=== PATIENT | female | born 1985 | race Caucasian/White ===

== ENCOUNTER 2016-09-21 18:17 | Emergency (ER) | payer OTHER ==
[2016-09-21 18:22] VITALS: BMI 39.1
--- NOTE | 2016-09-21 18:59 | PDOC ---
History of Present Illness - History of Present Illness Initial Comments: 09/21/16 19:29 The patient is a 31 year old female, with a significant past medical history of polycystic kidneys, kidney stones, and hypertension, who presents to the emergency department with right lower back pain since 10AM this morning. She reports the onset of pain was sudden while she was resting. She described the pain as constant, sharp, 4/10 in severity. She reports the pain is only slightly alleviated when sitting completely still. She states her LMP was about a month ago and states she can not be certain whether or not she is . The patient states she is nauseous but also reports feeling nauseous daily at baseline. She denies chest pain, shortness of breath, headache and dizziness. She denies fever, chills, vomit, diarrhea and constipation. She denies dysuria, frequency, urgency and hematuria. Allergies: NKDA Social history: PCP - Dr. Morales ([phone]) <Jenny Haynes - Last Filed: 09/21/16 20:57> <Tiffanie Petersen - Last Filed: 09/21/16 23:22> - General Chief Complaint: Pain Stated Complaint: KIDNEY PAIN Time Seen by Provider: 09/21/16 18:48 Past History <Jenny Haynes - Last Filed: 09/21/16 20:57> - Past Medical History Disorders: Yes (polycystic kidney disease) HTN: Yes Psychiatric Problems: Yes (anxiety/depression) - Psycho/Social/Smoking Cessation Hx Anxiety: No Suicidal Ideation: No Smoking History: Never smoked Have you smoked in the past 12 months: Yes Number of Cigarettes Smoked Daily: 7 Information on smoking cessation initiated: Yes 'Breaking Loose' booklet given: 09/21/16 Hx Alcohol Use: No Drug/Substance Use Hx: No Substance Use Type: None <Tiffanie Petersen - Last Filed: 09/21/16 23:22> - Past Medical History Allergies/Adverse Reactions: Allergies Allergy/AdvReac Type Severity Reaction Status Date / Time No Known Allergies Allergy Verified 09/21/16 18:19 Home Medications: Ambulatory Orders Lisinopril [Prinivil -] 20 mg PO DAILY 05/29/15 Bupropion HCl [Wellbutrin -] 100 mg PO DAILY 05/04/16 Clonazepam [Klonopin -] 0.5 mg PO ASDIR PRN 05/04/16 Dextroamphetamine/Amphetamine [Adderall 5 mg Tablet] 40 mg PO DAILY 05/04/16 Ciprofloxacin [Cipro -] 500 mg PO Q12H #20 tablet 05/05/16 Review of Systems - Review of Systems Able to Perform ROS?: Yes Comments:: 09/21/16 19:29 CONSTITUTIONAL: Absent: fever, chills, diaphoresis, generalized weakness, malaise, loss of appetite HEENT: Absent: rhinorrhea, nasal congestion, throat pain, throat swelling, difficulty swallowing, mouth swelling, ear pain, eye pain, visual Changes CARDIOVASCULAR: Absent: chest pain, syncope, palpitations, irregular heart rate, lightheadedness , peripheral edema RESPIRATORY: Absent: cough, shortness of breath, dyspnea with exertion, orthopnea, wheezing, stridor, hemoptysis GASTROINTESTINAL: Absent: abdominal pain, abdominal distension, nausea, vomiting, diarrhea, constipation, melena, hematochezia GENITOURINARY: Absent: dysuria, frequency, urgency, hesitancy, hematuria, flank pain, genital pain MUSCULOSKELETAL: (+) right lower back pain. Absent: arthralgia, joint swelling SKIN: Absent: rash, itching, pallor HEMATOLOGIC/IMMUNOLOGIC: Absent: easy bleeding, easy bruising, lymphadenopathy, frequent infections ENDOCRINE: Absent: unexplained weight gain, unexplained weight loss, heat intolerance, cold intolerance NEUROLOGIC: Absent: headache, focal weakness or paresthesias, dizziness, unsteady gait, seizure, mental status changes, bladder or bowel incontinence PSYCHIATRIC: Absent: anxiety, depression, suicidal or homicidal ideation, hallucinations. <Jenny Haynes - Last Filed: 09/21/16 20:57> *Physical Exam - Vital Signs Last Vital Signs Temp Pulse Resp BP Pulse Ox 98.0 F 98 H 18 131/91 100 09/21/16 18:20 09/21/16 18:20 09/21/16 18:20 09/21/16 18:20 09/21/16 18:20 - Physical Exam Comments: 09/21/16 19:30 GENERAL: Well developed, well nourished. Awake and alert. No acute distress. HEENT: Normocephalic, atraumatic. PERRLA, EOMI. No conjunctival pallor. Sclera are non- icteric. Moist mucous membranes. Oropharynx is clear. NECK: Supple. Full ROM. No JVD. Carotid pulses 2+ and symmetric, without bruits. No thyromegaly. No lymphadenopathy. CARDIOVASCULAR: Regular rate and rhythm. No murmurs, rubs, or gallops. Distal pulses are 2+ and symmetric. PULMONARY: No evidence of respiratory distress. Lungs clear to auscultation bilaterally. No wheezing, rales or rhonchi. ABDOMINAL: Soft. Non-tender. Non-distended. No rebound or guarding. No organomegaly. Normoactive bowel sounds. MUSCULOSKELETAL (+) mild tenderness to right lower back. Normal range of motion at all joints. No bony deformities. No CVA tenderness. EXTREMITIES: No cyanosis. No clubbing. No edema. No calf tenderness. SKIN: Warm and dry. Normal capillary refill. No rashes. No jaundice. NEUROLOGICAL: Alert, awake, appropriate. Cranial nerves 2-12 intact. Normoreflexic in the upper and lower extremities. Normal speech. Toes are down-going bilaterally. Gait is normal without ataxia. PSYCHIATRIC: Cooperative. Good eye contact. Appropriate mood and affect. <Jenny Haynes - Last Filed: 09/21/16 20:57> - Vital Signs Last Vital Signs Temp Pulse Resp BP Pulse Ox 98.0 F 98 H 18 131/91 100 09/21/16 18:20 09/21/16 18:20 09/21/16 18:20 09/21/16 18:20 09/21/16 18:20 <Tiffanie Petersen - Last Filed: 09/21/16 23:22> ED Treatment Course - LABORATORY CBC & Chemistry Diagram: 09/21/16 19:10 09/21/16 19:10 - Medications Given in the ED: ED Medications Discontinued Medications Generic Name Dose Route Start Last Admin Trade Name Freq PRN Reason Stop Dose Admin Ketorolac Tromethamine 30 mg 09/21/16 19:00 09/21/16 19:04 Toradol Injection - IVPUSH 09/21/16 19:01 30 mg ONCE ONE Administration <Jenny Haynes - Last Filed: 09/21/16 20:57> - LABORATORY CBC & Chemistry Diagram: 09/21/16 19:10 09/21/16 19:10 <Tiffanie Petersen - Last Filed: 09/21/16 23:22> Medical Decision Making - Medical Decision Making 09/21/16 20:45 The patient's limerock tower loader, Dr. Hampton ([phone]), was paged at this time requesting a callback for a doctor to doctor consult. Dr. Morales was paged at 20:49 for a doctor to doctor consult and the patient' s case was discussed. 09/21/16 20:57 At this time, I have received a call back from Dr. Raji Murphy, a renal fellow from [facility]. The patient's case was discussed. <Jenny Haynes - Last Filed: 09/21/16 20:57> - Medical Decision Making 09/21/16 23:13 31-year-old female with a history of polycystic kidney disease. Presents because for one day she's had right sided low back pain near her right hip. -sHe denies trauma -She denies fever or chills It's nonradiating and not associated with vomiting. There is no chest pain, no shortness of breath. There is no pain between her shoulder blades. She was not dizzy or lightheaded. -She still urinates daily She is normotensive Urinalysis was negative for any evidence of infection CBC was 8. There was no leukocytosis Chemistries were reviewed and it showed significant renal insufficiency. She was here in April 2016. At that time her peak creatinine was 2.9 Today her creatinine is 3.4 I Did speak to the nephrology fellow covering for attending Dr Mancuso who she started seeing just this last month at [facility] and has another appt with him soon -Impression she could have a ureteral kidney stone, or one of her kidney cyst could've ruptured Ultrasound didn't show kidney calculi, but there were no obstructing ureteral stones-. Both kidneys were equally large and had cysts but there was no evidence of ruptured cysts Impression-chronic renal failure due to chronic polycystic disease Plan -patient has appt Follow-up with her limerock tower loader <Tiffanie Petersen - Last Filed: 09/21/16 23:22> *DC/Admit/Observation/Transfer - Attestations Scribe Attestion: 09/21/16 19:30 Documentation prepared by Jenny Haynes, acting as medical interpreter for Tiffanie Petersen MD <Jenny Haynes - Last Filed: 09/21/16 20:57> <Tiffanie Petersen - Last Filed: 09/21/16 23:22> Diagnosis at time of Disposition: Polycystic kidney disease, Renal insufficiency, Musculoskeletal pain - Discharge Dispostion Disposition: HOME Condition at time of disposition: Stable - Referrals Referrals: Suzan Morales MD [Primary Care Provider] - - Patient Instructions Printed Discharge Instructions: Polycystic Kidney Disease, DI for Low Back Pain Additional Instructions: PLease follow up with your limerock tower loader
[2016-09-21] MEDS ORDERED: SODIUM CHLORIDE 1,000 ML IV STA (19:00)
[2016-09-21] MEDS ORDERED: KETOROLAC TROMETHAMINE 30 MG/1 ML VIAL IVPUSH ONE (19:00)
[2016-09-21] MEDS ORDERED: KETOROLAC TROMETHAMINE 30 MG/1 ML VIAL ONE (19:05)
[2016-09-21 19:48] LABS: URINE APPEARANCE CLEAR; URINE BILIRUBIN NEGATIVE (NEGATIVE); URINE COLOR STRAW; URINE GLUCOSE (UA) NEGATIVE (NEGATIVE); URINE KETONE NEGATIVE (NEGATIVE); URINE LEUK ESTERASE NEGATIVE (NEGATIVE); URINE NITRITE NEGATIVE (NEGATIVE); URINE UROBILINOGEN NEGATIVE E.U./dl (0.2-1.0)
[2016-09-21 19:54] LABS: URINE BLOOD 2+ (NEGATIVE); URINE PROTEIN 1+ (NEGATIVE)
[2016-09-21 19:56] LABS: URINE MUCUS RARE; URINE RBC <1 /hpf (0-3); URINE WBC 1 /hpf (3-5)
[2016-09-21 20:00] LABS: BASOPHIL 0.6 % (0-2.0); MCHC 32.2 g/dl (32.0-36.0); MEAN PLT VOLUME 9.3 fl (7.5-11.1); NEUTROPHILS 67.8 % (42.8-82.8); PLATELET COUNT 243 K/MM3 (134-434); RDW 15.6 % (11.6-15.6); WHITE BLOOD COUNT 8.5 K/mm3 (4.0-10.0)
[2016-09-21 20:08] LABS: ALBUMIN 3.6 g/dl (3.4-5.0); BILIRUBIN,TOTAL 0.2 mg/dL (0.2-1.0); CALCIUM 10.4 mg/dL (8.5-10.1); CREATININE 3.4 mg/dL (0.55-1.02); TOT PROT 7.2 g/dl (6.4-8.2)
[2016-09-21] MEDS ORDERED: HYDROmorphone HCL CARPU-JECT 1 MG/1 ML DISP.SYRIN ONE (22:31)
[2016-09-21] MEDS ORDERED: HYDROmorphone HCL CARPU-JECT 1 MG/1 ML DISP.SYRIN IVPUSH ONE (22:41)
[2016-09-21 22:58] VITALS: BP 122/60; PULSE 87; TEMP 98.7
== END 2016-09-21 23:34 | disposition home or self-care (01) ==
LOC: JER 18:17
PROC: 3E033NZ Introduction of Analgesics, Hypnotics, Sedatives into Peripheral Vein, Percutaneous Approach (ICD-10-PCS; principal; 2016-09-21)
PROC: 3E0333Z Introduction of Anti-inflammatory into Peripheral Vein, Percutaneous Approach (ICD-10-PCS; 2016-09-21)
DX: Q61.3 Polycystic kidney, unspecified (principal); N28.9 Disorder of kidney and ureter, unspecified; I10 Essential (primary) hypertension; F41.8 Other specified anxiety disorders
CPT/HCPCS: 36415; 76775-TC; 80053; 81003; 81015; 84703; 85025; 96374; 96375; 99284-25

== ENCOUNTER 2019-01-18 16:31 | Emergency (ER) | payer OTHER | END 2019-01-18 19:04 | disposition home or self-care (01) | LOC: JER 16:31 ==

== ENCOUNTER 2019-02-27 15:48 | Emergency (ER) | payer OTHER ==
[2019-02-27 16:01] VITALS: BP 133/95; PULSE 103; TEMP 97.4; BMI 36.0
--- NOTE | 2019-02-27 16:04 | PDOC ---
Rapid Medical Evaluation Chief Complaint: Edema Time Seen by Provider: 02/27/19 15:58 Medical Evaluation: Allergies Allergy/AdvReac Type Severity Reaction Status Date / Time No Known Allergies Allergy Verified 02/27/19 15:56 Vital Signs Temp Pulse Resp BP Pulse Ox 97.4 F L 103 H 16 133/95 107 H 02/27/19 15:56 02/27/19 15:56 02/27/19 15:56 02/27/19 15:56 02/27/19 15:56 02/27/19 16:03 Pt c/o: generalized weakness and heaviness x 3 days, also with vivian lower extremity tingling burning pain, Pt on brief exam: slightly tachycardic, ambulatory and 2+ pedal pulses vivian Pt ordered for: labs and urine Pt to proceed to the ED Discharge Disposition - Diagnosis Weakness - Referrals Referrals: Jalen Vences MD [Primary Care Provider] - - Patient Instructions - Post Discharge Activity
--- NOTE | 2019-02-27 19:53 | PDOC ---
*Physical Exam - Vital Signs Last Vital Signs Temp Pulse Resp BP Pulse Ox 97.4 F L 103 H 16 133/95 107 H 02/27/19 15:56 02/27/19 15:56 02/27/19 15:56 02/27/19 15:56 02/27/19 15:56 Medical Decision Making - Medical Decision Making 02/27/19 19:53 Patient seen by the advanced practice provider under my direct supervision. Ancillary testing reviewed as necessary. I agree with plan as outlined by the advanced practice provider. *DC/Admit/Observation/Transfer Diagnosis at time of Disposition: Weakness, Edema - Referrals Referrals: Jalen Vences MD [Primary Care Provider] - - Patient Instructions - Post Discharge Activity
--- NOTE | 2019-02-27 20:04 | PDOC ---
History of Present Illness - General Chief Complaint: Edema Stated Complaint: WEEK LEGS/PAIN Time Seen by Provider: 02/27/19 15:58 History Source: Patient - History of Present Illness Initial Comments: 02/27/19 20:04 33 year old female c/o b/l pedal edema with swelling to toes. patient c/o pain to the toes. denies calf pain, chest pain, nausea / vomiting. patient reports that she missed dialysis on tuesday reports that she will go tomorrow. 02/27/19 21:37 Past History - Past Medical History Allergies/Adverse Reactions: Allergies Allergy/AdvReac Type Severity Reaction Status Date / Time No Known Allergies Allergy Verified 02/27/19 15:56 Home Medications: Ambulatory Orders Bupropion HCl [Wellbutrin -] 100 mg PO DAILY 05/04/16 Dextroamphetamine/Amphetamine [Adderall 5 mg Tablet] 40 mg PO DAILY 05/04/16 Amlodipine Besylate [Norvasc -] 10 mg PO DAILY 01/18/19 Oxycodone HCl/Acetaminophen [Percocet 5-325 mg Tablet] 1 - 2 tab PO Q6H PRN #12 tab MDD 4 01/18/19 levoFLOXacin [Levaquin] 750 mg PO DAILY #5 tab 01/18/19 traZODone HCL [Trazodone HCl] 100 mg PO HS 01/18/19 COPD: No Disorders: Yes (polycystic kidney disease) HTN: Yes Psychiatric Problems: Yes (anxiety/depression) - Suicide/Smoking/Psychosocial Hx Smoking History: Current every day smoker Have you smoked in the past 12 months: No Number of Cigarettes Smoked Daily: 2 Information on smoking cessation initiated: No 'Breaking Loose' booklet given: 09/21/16 Hx Alcohol Use: No Drug/Substance Use Hx: No Substance Use Type: None Review of Systems - Review of Systems Able to Perform ROS?: Yes Is the patient limited Nepali proficient: No Constitutional: No: Symptoms Reported, See HPI, Chills, Diaphoresis, Fever, Loss of Appetite, Malaise, Night Sweats, Weakness, Weight Stable, Unintentional Wgt. Loss, Unexplained wgt Loss, Other *Physical Exam - Vital Signs Last Vital Signs Temp Pulse Resp BP Pulse Ox 97.4 F L 103 H 16 133/95 107 H 02/27/19 15:56 02/27/19 15:56 02/27/19 15:56 02/27/19 15:56 02/27/19 15:56 - Physical Exam General Appearance: Yes: Appropriately Dressed Respiratory/Chest: positive: Lungs Clear, Normal Breath Sounds Musculoskeletal: positive: Normal Inspection Extremity: positive: Pedal Edema (b/l nonpitting edema) Integumentary: positive: Normal Color, Dry, Warm Neurologic: positive: Fully Oriented, Alert Progress Note - Progress Note Progress Note: A: pedal edema liekly from missing dialysis P: labs Medical Decision Making - Medical Decision Making 02/28/19 05:15 patient eloped while work up has done *DC/Admit/Observation/Transfer Diagnosis at time of Disposition: Weakness Edema Qualifiers: Edema type: unspecified Qualified Code(s): R60.9 - Edema, unspecified - Discharge Dispostion Disposition: ELOPED Condition at time of disposition: Fair - Referrals Referrals: Jalen Vences MD [Primary Care Provider] - - Patient Instructions - Post Discharge Activity
[2019-02-27 21:12] LABS: HCG,QUALITATIVE URINE Negative
[2019-02-27 21:14] LABS: EPI CELLS 3.7 /HPF (0-5/HPF); HYALINE CASTS 1 /lpf (0-8); PH,URINE 6.5 (5.0-8.0); URINE APPEARANCE CLEAR; URINE BACTERIA 307.9 /hpf (NEGATIVE); URINE BILIRUBIN NEGATIVE (NEGATIVE); URINE COLOR YELLOW; URINE GLUCOSE (UA) NEGATIVE (NEGATIVE); URINE KETONE NEGATIVE (NEGATIVE); URINE LEUK ESTERASE NEGATIVE (NEGATIVE); URINE NITRITE NEGATIVE (NEGATIVE); URINE PROTEIN 2+ (NEGATIVE); URINE RBC 1 /hpf (0-4); URINE UROBILINOGEN 0.2 mg/dL (0.2-1.0); URINE WBC 3 /hpf (0-5)
[2019-02-27] MEDS ORDERED: ACETAMINOPHEN 325 MG TABLET (FP) PO ONE (21:24)
[2019-02-27] MEDS ORDERED: ACETAMINOPHEN 325 MG TABLET (FP) ONE (21:47)
== END 2019-02-27 21:51 | disposition left against medical advice (07) ==
LOC: JER 15:48
DX: R53.1 Weakness (principal); M79.89 Other specified soft tissue disorders; E28.2 Polycystic ovarian syndrome; I10 Essential (primary) hypertension; F41.8 Other specified anxiety disorders; F17.210 Nicotine dependence, cigarettes, uncomplicated
CPT/HCPCS: 81003; 84703; 87086; 99281-25

== ENCOUNTER 2019-06-09 17:28 | Emergency (ER) | payer OTHER ==
[2019-06-09 17:47] VITALS: BP 141/70; PULSE 103; TEMP 98.2; BMI 31.0
--- NOTE | 2019-06-09 18:55 | PDOC ---
History of Present Illness - General Chief Complaint: Back Pain Stated Complaint: BACK PAIN Time Seen by Provider: 06/09/19 18:07 - History of Present Illness Initial Comments: 06/09/19 18:45 33 yo F PMH polycystic kidney disease c/b ESRD on dialysis (MWF) for past year, initially by port cath, now via L arm fistula for several months, HTN, two back surgeries in her youth c/b chronic back pain, presenting with thoracic back pain. Patient reports sudden onset, 05/31, constant sharp b/l back pain starting yesterday evening which has not responded to acetaminophen or Aleve. Pain is alleviated by standing up and laying down, worsened by sitting. Patient states that she has no other symptoms besides severe pain, and specifically denies CP, SOB, constipation/diarrhea, N/V, REYNOLDS, abdominal pain. She went to her dialysis yesterday without any issues. Past History - Past Medical History Allergies/Adverse Reactions: Allergies Allergy/AdvReac Type Severity Reaction Status Date / Time No Known Allergies Allergy Verified 06/09/19 17:43 Home Medications: Ambulatory Orders Bupropion HCl [Wellbutrin -] 100 mg PO DAILY 05/04/16 Dextroamphetamine/Amphetamine [Adderall 5 mg Tablet] 40 mg PO DAILY 05/04/16 Amlodipine Besylate [Norvasc -] 10 mg PO DAILY 01/18/19 Oxycodone HCl/Acetaminophen [Percocet 5-325 mg Tablet] 1 - 2 tab PO Q6H PRN #12 tab MDD 4 01/18/19 levoFLOXacin [Levaquin] 750 mg PO DAILY #5 tab 01/18/19 traZODone HCL [Trazodone HCl] 100 mg PO HS 01/18/19 Lidocaine 5% Patch [Lidoderm Patch -] 1 patch TP DAILY PRN #30 patch 06/10/19 COPD: No Disorders: Yes (polycystic kidney disease) HTN: Yes Psychiatric Problems: Yes (anxiety/depression) - Psycho Social/Smoking Cessation Hx Smoking History: Never smoked Have you smoked in the past 12 months: No Number of Cigarettes Smoked Daily: 2 'Breaking Loose' booklet given: 09/21/16 Hx Alcohol Use: No Drug/Substance Use Hx: No Substance Use Type: None Review of Systems - Review of Systems Able to Perform ROS?: Yes Constitutional: No: Chills, Diaphoresis, Fever HEENTM: No: Recent change in vision, Ear Discharge, Hearing Loss, Difficulty Swallowing Respiratory: No: Cough, Orthopnea, Shortness of Breath Cardiac (ROS): No: Chest Pain, Edema, Irregular Heart Rate ABD/GI: No: Constipated, Diarrhea, Nausea, Vomiting : No: Burning, Dysuria, Discharge, Frequency, Flank Pain, Hematuria Musculoskeletal: Yes: Back Pain (thoracic, bilateral). No: Muscle Pain, Muscle Weakness Neurological: No: Headache, Numbness, Seizure, Tingling, Weakness *Physical Exam - Vital Signs Last Vital Signs Temp Pulse Resp BP Pulse Ox 98.2 F 103 H 22 H 141/70 97 06/09/19 17:43 06/09/19 17:43 06/09/19 17:43 06/09/19 17:43 06/09/19 17:43 - Physical Exam Comments: 06/09/19 18:56 Gen: well-developed, well-nourished, distressed Neuro: AAOX4, CN II-XII intact, FTN intact, EOMI, PERRLA, 5/5 strength, SILT HEENT: atraumatic, normocephalic Neck: trachea midline, supple CV: regular rate, regular rhythm, no murmurs, rubs, or gallops Pulm: CTA b/l, no wheezing Abd: soft, non-distended, mild LUQ discomfort with palpation MSK: full ROM, intact pulses Back: no ttp, no apparent signs of trauma, erythema or edema Extr: no edema, no deformities, L forearm AV fistula Skin: warm, dry ED Treatment Course - LABORATORY CBC & Chemistry Diagram: 06/09/19 20:15 06/09/19 20:15 Medical Decision Making - Medical Decision Making 06/09/19 20:05 Back pain concerning for MSK v UTI/pyelo/possible kidney stone. - CBC, CMP, coags - Ofirmev, 2mg morphine, fluids - UA/UC - reassess 06/09/19 21:05 Patient reassessed, feeling significantly better. 06/09/19 21:45 BUN 116.2, Cr 6.8. Cr about baseline, BUN higher. Patient ESRD on dialysis. 06/09/19 22:11 EKG normal sinus at 95, very poor baseline. UA with 3+ blood, trace leuk esterase. Will get spiral CT. 06/10/19 00:01 CT abd/pelvis showing polycystic kidney disease, multilevel disc degeneration. Will dc patient home. Discharge - Discharge Information Problems reviewed: Yes Clinical Impression/Diagnosis: Back pain Condition: Improved Disposition: HOME - Additional Discharge Information Prescriptions: Lidocaine 5% Patch [Lidoderm Patch -] 1 patch TP DAILY PRN #30 patch PRN Reason: Pain - Follow up/Referral - Patient Discharge Instructions Patient Printed Discharge Instructions: DI for Low Back Pain Additional Instructions: You were seen with low back pain. Your labs and imaging were unremarkable, and you did not have any obstructing kidney stones. Please follow up with your primary care doctor within one week. Take ibuprofen/acetaminophen as needed for pain, and use your Lidoderm patches. Return to the ED if you develop worsening symptoms. - Post Discharge Activity
[2019-06-09] MEDS ORDERED: ACETAMINOPHEN 500 MG TABLET (FP) PO ONE (19:06)
[2019-06-09] MEDS ORDERED: ACETAMINOPHEN 1000 MG/100 ML VIAL (NON FORMULARY) IVPB ONE (19:24)
[2019-06-09] MEDS ORDERED: LIDOCAINE 5% TOPICAL PATCH TP ONE (19:39)
[2019-06-09] MEDS ORDERED: morphine CARPU-JECT 4 MG/1 ML DISP.SYRIN IVPUSH ONE (19:39)
[2019-06-09] MEDS ORDERED: ACETAMINOPHEN INJECTION 100 ML IVPB ONE (19:47)
[2019-06-09] MEDS ORDERED: LIDOCAINE 5% TOPICAL PATCH ONE (20:11)
[2019-06-09] MEDS ORDERED: MORPHINE SULFATE 2 MG/ML VIAL ONE (20:11)
[2019-06-09 20:24] LABS: BASO % 1.4 % (0-2.0); EOS % 2.6 % (0-4.5); HEMATOCRIT 47.5 % (32.4-45.2); HEMOGLOBIN 15.4 GM/dL (10.7-15.3); LYMPH % 14.4 % (8-40); MCH 29.2 pg (25.7-33.7); MCHC 32.4 g/dl (32.0-36.0); MONO % 7.8 % (3.8-10.2); NEUT % 73.8 % (42.8-82.8); PLATELET COUNT 236 K/MM3 (134-434); RBC 5.28 M/mm3 (3.60-5.2); RDW 16.7 % (11.6-15.6); WHITE BLOOD COUNT 9.9 K/mm3 (4.0-10.0)
[2019-06-09 20:38] LABS: INR 0.97 (0.83-1.09); PROTHROMBIN TIME (PATIENT) 11.5 SEC (9.7-13.0)
[2019-06-09 20:41] LABS: ACTIVATED PTT 33.5 SECONDS (25.2-36.5)
[2019-06-09] MEDS ORDERED: SODIUM CHLORIDE 0.9% 500 ML INFUS.BAG IV ONE (20:44)
[2019-06-09 20:53] LABS: ALBUMIN 3.5 g/dl (3.4-5.0); BILIRUBIN,TOTAL 0.5 mg/dL (0.2-1); CALCIUM 9.4 mg/dL (8.5-10.1); CREATININE 6.8 mg/dL (0.55-1.3); POTASSIUM 4.1 mmol/L (3.5-5.1); TOT PROT 7.2 g/dl (6.4-8.2)
[2019-06-09 21:02] LABS: BLOOD UREA NITROGEN 116.2 mg/dL (7-18)
[2019-06-09 21:50] LABS: EPI CELLS 4.6 /HPF (0-5/HPF); HYALINE CASTS 1 /lpf (0-8); PH,URINE 5.5 (5.0-8.0); URINE APPEARANCE CLEAR; URINE BACTERIA 143.7 /hpf (NEGATIVE); URINE BILIRUBIN NEGATIVE (NEGATIVE); URINE COLOR YELLOW; URINE GLUCOSE (UA) NEGATIVE (NEGATIVE); URINE KETONE NEGATIVE (NEGATIVE); URINE LEUK ESTERASE TRACE (NEGATIVE); URINE NITRITE NEGATIVE (NEGATIVE); URINE PROTEIN 2+ (NEGATIVE); URINE RBC 8 /hpf (0-4); URINE UROBILINOGEN 0.2 mg/dL (0.2-1.0); URINE WBC 10 /hpf (0-5)
[2019-06-09] MEDS ORDERED: LIDOCAINE PATCH REMOVAL MC SCH (22:00)
--- NOTE | 2019-06-10 00:37 | PDOC ---
Documentation entered by Sheldon Mane SCRIBE, acting as scribe for Laverne Hampton MD. Laverne Hampton MD: This documentation has been prepared by the Antonietta bravo Nirvannie, SCRIBE, under my direction and personally reviewed by me in its entirety. I confirm that the documentation accurately reflects all work, treatment, procedures, and medical decision making performed by me. Attending Attestation - Resident Resident Name: Charlie Luna - ED Attending Attestation I have performed the following: I have examined & evaluated the patient, The case was reviewed & discussed with the resident, I agree w/resident's findings & plan - HPI HPI: 06/09/19 20:15 The patient is a 33 year old female, with a significant past medical history of polycystic kidney disease, ESRD (dialysis MWF), HTN, and chronic back pain, who presents to the emergency department with, 2 days of sudden onset constant, sharp, bilateral thoracic back pain. Patient notes the pain to worsen while sitting and is alleviated while lying flat. She endorses using Acetaminophen or Aleve, without relief prompting her arrival to the ED. She denies recent fevers, chills, headache or dizziness. She denies recent nausea, vomit, diarrhea or constipation. She denies recent dysuria, frequency, urgency or hematuria. She denies recent chest pain or shortness of breath. Allergies: NKDA Last dialysis: 06/08 - Physicial Exam PE: 06/10/19 00:23 Agree with resident exam. Pt has bilateral back pain, but it is more consistent with muscle strain. Unlikely to be due to kidney stones. We are awaiting her UA to see if she has stones. - Medical Decision Making 06/09/19 23:23 Pt has blood in her urine and she will have a spiral CT scan to r/o stones 06/09/19 23:58 Patient Name: GEORGE BAILEY THIS IS A PRELIMINARY REPORT FROM [facility] EXAM: CT Abdomen \T\ Pelvis wo IMAGES: 532 EXAM DATE AND TIME: 2019-06-09 22:52:16 HISTORY: 33 year old woman: Rule out renal stone. COMPARISON: None. TECHNIQUE: CT Abdomen \T\ Pelvis with oral, but no I.V., contrast: Non-contrast axial images were obtained. Coronal and sagittal images were also generated. FINDINGS: The lung bases are clear without evidence of infiltrate, pleural effusion or pulmonary nodule. The heart size is normal. There are no coronary artery calcifications. The lower thoracic and abdominal aorta, and the iliac arteries, are normal in diameter and wall thickness. There are innumerable cysts within each kidney, consistent with polycystic kidney disease (PKD). The kidneys are enlarged, measuring 20 cm in height on the right and 21 cm in height on the left. A multitude of these cysts exhibit varied densities, suggesting hemorrhages within the cysts in the past. There are innumerable nonobstructing calcification seen within the renal cortical tissues. There is no evidence of hydronephrosis. The ureters are normal in diameter. The urinary bladder appears unremarkable. Uterus and adnexal structures are also appear normal. There are a few small scattered benign appearing cysts within the liver, the largest measuring 1.8 cm in the inferior tip of the right hepatic lobe. The liver appears otherwise normal size shape and contour. The common bile duct, gallbladder, pancreatic tissues, spleen, adrenal glands, gastrointestinal tract, appendix, appear unremarkable. No evidence of abdominal or pelvic adenopathy. Osseous structures exhibit grossly normal mineralization without evidence of lytic or sclerotic lesions. The thoracic and lumbar vertebral body heights and alignments are maintained. There is a mild levoscoliosis centered at L3, associated with multilevel disc degeneration from the L1-2 down from the L5-S1 levels. IMPRESSION: Innumerable cysts within each kidney, consistent with polycystic kidney disease (PKD). The kidneys are enlarged, measuring 20 cm in height on the right and 21 cm in height on the left. A multitude of these cysts exhibit varied densities, suggesting hemorrhages within the cysts in the past. There are innumerable nonobstructing calcification seen within the renal cortical tissues. No evidence of hydronephrosis or hydroureter. Mild levoscoliosis centered at L3, associated with multilevel disc degeneration from the L1-2 down from the L5-S1 levels. The study is otherwise unremarkable. 06/10/19 00:37 Pt is stable for d/c alfredo. She will go home with lidoderm patches.
--- NOTE | 2019-06-10 10:32 | EKG ---
Test Reason : Blood Pressure : / mmHG Vent. Rate : 100 BPM Atrial Rate : 100 BPM P-R Int : 188 ms QRS Dur : 098 ms QT Int : 366 ms P-R-T Axes : 051 102 045 degrees QTc Int : 472 ms NORMAL SINUS RHYTHM RIGHTWARD AXIS LOW VOLTAGE QRS CANNOT RULE OUT ANTEROSEPTAL INFARCT (CITED ON OR BEFORE 29-MAY-2015) ABNORMAL ECG WHEN COMPARED WITH ECG OF 29-MAY-2015 20:53, NO SIGNIFICANT CHANGE WAS FOUND Confirmed by MD OSVALDO, ROHIT ([id number]) on 06/10/2019 10:31:39 AM Referred By: Confirmed By:ROHIT RILEY MD
--- NOTE | 2019-06-10 15:31 | EKG ---
Test Reason : Blood Pressure : / mmHG Vent. Rate : 095 BPM Atrial Rate : 095 BPM P-R Int : 188 ms QRS Dur : 098 ms QT Int : 392 ms P-R-T Axes : 051 205 038 degrees QTc Int : 492 ms NORMAL SINUS RHYTHM POSSIBLE LEFT ATRIAL ENLARGEMENT RIGHT SUPERIOR AXIS DEVIATION INFERIOR INFARCT , AGE UNDETERMINED ANTEROSEPTAL INFARCT (CITED ON OR BEFORE 29-MAY-2015) ABNORMAL ECG WHEN COMPARED WITH ECG OF 29-MAY-2015 20:53, LEFT POSTERIOR FASCICULAR BLOCK IS NO LONGER PRESENT INFERIOR INFARCT IS NOW PRESENT Confirmed by MD OSVALDO, ROHIT ([id number]) on 06/10/2019 3:31:08 PM Referred By: Confirmed By:ROHIT RILEY MD
== END 2019-06-10 00:20 | disposition home or self-care (01) ==
LOC: JER 17:28
PROC: 3E033NZ Introduction of Analgesics, Hypnotics, Sedatives into Peripheral Vein, Percutaneous Approach (ICD-10-PCS; principal; 2019-06-09)
PROC: 3E033NZ Introduction of Analgesics, Hypnotics, Sedatives into Peripheral Vein, Percutaneous Approach (ICD-10-PCS; 2019-06-09)
DX: M54.6 Pain in thoracic spine (principal); I12.0 Hypertensive chronic kidney disease with stage 5 chronic kidney disease or end stage renal disease; N18.6 End stage renal disease; N17.8 Other acute kidney failure; Z99.2 Dependence on renal dialysis; F41.9 Anxiety disorder, unspecified; F32.9 Major depressive disorder, single episode, unspecified; Q61.3 Polycystic kidney, unspecified
CPT/HCPCS: 36415; 74176-TC; 80053; 81003; 84703; 85025; 85610; 85730; 87086; 93005; 93010; 96374; 96375; 99283-25; J0131